=== PATIENT | female | born 1990 | race Caucasian/White ===

== ENCOUNTER → 2018-04-25 | Outpatient (CLI) | payer MEDICAID | END | disposition home or self-care (01) | LOC: RAD 13:01 | DX: O28.4 Abnormal radiological finding on antenatal screening of mother (principal); R76.11 Nonspecific reaction to tuberculin skin test without active tuberculosis | CPT/HCPCS: 71045 ==

== ENCOUNTER 2018-07-02 12:19 | Outpatient (CLI) | payer MEDICAID | END 2018-07-02 13:30 | disposition home or self-care (01) | LOC: OBT 12:19 → L-D 12:19 → OBT 13:30 | DX: O36.8130 Decreased fetal movements, third trimester, not applicable or unspecified (principal); Z3A.37 37 weeks gestation of pregnancy | CPT/HCPCS: 76818 ==

== ENCOUNTER 2018-07-17 14:14 | Inpatient (IN) | payer MEDICAID ==
[2018-07-17 15:58] LABS: ADD MAN DIFF? NO
[2018-07-17 16:00] LABS: BASOPHILS % 0.3 % (0.0-2.0); EOSINOPHILS % 0.6 % (0.0-7.0); HEMATOCRIT 34.2 % (37.0-47.0); HEMOGLOBIN 11.9 g/dl (12.0-16.0); LYMPHOCYTES # 1.5 10^3/ul (0.8-2.9); LYMPHOCYTES % 24.1 % (15.0-51.0); MEAN CORPUSCULAR HEMOGLOBIN 29.9 pg (29.0-33.0); MEAN CORPUSCULAR HGB CONC 34.8 g/dl (32.0-37.0); MEAN CORPUSCULAR VOLUME 85.9 fl (82.0-101.0); MEAN PLATELET VOLUME 12.7 fl (7.4-10.4); MONOCYTE # 0.5 10^3/ul (0.3-0.9); MONOCYTES % 7.1 % (0.0-11.0); NEUTROPHIL # 4.3 10^3/ul (1.6-7.5); NEUTROPHILS % 67.6 % (39.0-77.0); PLATELET COUNT 150 10^3/UL (140-415); RED BLOOD COUNT 3.98 10^6/ul (4.20-5.40); RED CELL DISTRIBUTION WIDTH 13.2 % (11.5-14.5)
[2018-07-17 16:00] LABS: WHITE BLOOD COUNT 6.3 10^3/ul (4.8-10.8)
[2018-07-17] MEDS ORDERED: METHYLERGONOVINE 0.2 MG INJ IM (16:00)
[2018-07-17] MEDS ORDERED: LIDOCAINE 1% (MPF) 30 ML INJ INJ (16:00)
[2018-07-17] MEDS ORDERED: MISOPROSTOL 200 MCG TAB PR (16:00)
[2018-07-17] MEDS ORDERED: AMPICILLIN 2 GM/NS (PMX) 100 ML IV (16:00)
[2018-07-17] MEDS ORDERED: CARBOPROST 250 MCG INJ IM (16:00)
[2018-07-17] MEDS ORDERED: IBUPROFEN 600 MG TAB PO (16:00)
[2018-07-17] MEDS ORDERED: OXYTOCIN 30 UNITS/LR 500 ML IV ×3 (16:00)
[2018-07-17 16:06] LABS: INR 0.88; PARTIAL THROMBOPLASTIN TIME 26.5 Sec (23.0-35.0); PT RATIO 0.9
[2018-07-17] MEDS: LACTATED RINGER'S 1,000 ML IV ×2 (16:22→22:24)
[2018-07-17 16:45] LABS: HEPATITIS B SURFACE ANTIGEN NEGATIVE (NEGATIVE)
[2018-07-17] MEDS: MISOPROSTOL 50 MCG CAPSULE PO (17:54)
[2018-07-17] MEDS ORDERED: AMPICILLIN 1 GM/NS (PMX) 50 ML IV (20:00)
[2018-07-18] MEDS: MISOPROSTOL 50 MCG CAPSULE PO ×5 (02:08→23:33)
[2018-07-18] MEDS: LACTATED RINGER'S 1,000 ML IV ×3 (02:52→18:12)
[2018-07-18 14:58] LABS: RAPID PLASMA REAGIN NONREACTIVE (NR)
[2018-07-19] MEDS: LACTATED RINGER'S 1,000 ML IV ×2 (00:48→08:15)
[2018-07-19] MEDS: MISOPROSTOL 50 MCG CAPSULE PO ×2 (18:15→22:22)
[2018-07-20] MEDS: LACTATED RINGER'S 1,000 ML IV ×4 (02:17→23:44)
[2018-07-20] MEDS: MISOPROSTOL 50 MCG CAPSULE PO ×4 (02:17→14:34)
[2018-07-20] MEDS: BUTORPHANOL 2 MG INJ IV ×2 (08:30→23:37)
[2018-07-21] MEDS: OXYTOCIN 30 UNITS/LR 500 ML IV ×2 (01:34→23:08)
[2018-07-21] MEDS: LACTATED RINGER'S 1,000 ML IV ×2 (07:56→15:16)
[2018-07-21] MEDS ORDERED: ONDANSETRON 4 MG INJ IV ×2 (08:30→20:00)
[2018-07-21] MEDS ORDERED: DIPHENHYDRAMINE 50 MG INJ IV ×2 (08:30→20:00)
[2018-07-21] MEDS ORDERED: EPHEDrine SULFATE 50 MG/5 ML SYG IV (08:30)
[2018-07-21] MEDS ORDERED: NALOXONE (0.4 MG/ML) INJ IV ×2 (08:30→20:00)
[2018-07-21] MEDS: FENTAnyl 2MCG/ML-ROPIV 0.2% 100 ML BAG EPI ×2 (10:52→15:57)
[2018-07-21] MEDS ORDERED: CEFAZOLIN 2 GM/50 ML (PMX) 50 ML IVPB (18:03)
[2018-07-21] MEDS ORDERED: METOCLOPRAMIDE 10 MG INJ (18:38)
[2018-07-21] MEDS ORDERED: OXYTOCIN 10 UNIT INJ ×2 (18:38→19:13)
[2018-07-21] MEDS ORDERED: OXYTOCIN 30 UNITS/LR 500 ML IV ×2 (18:38→23:00)
[2018-07-21] MEDS ORDERED: ONDANSETRON 4 MG INJ (18:38)
[2018-07-21] MEDS ORDERED: morphine SULFATE/PF (10 MG/10 ML) INJ (18:38)
[2018-07-21] MEDS: MINERAL OIL LIGHT 10 ML VIAL TOP (18:43)
[2018-07-21] MEDS: CEFAZOLIN 2 GM/50 ML (PMX) 50 ML IVPB (18:44)
[2018-07-21] MEDS ORDERED: MIDAZOLAM 1 MG/ML 2 ML INJ (19:19)
[2018-07-21] MEDS ORDERED: KETOROLAC 30 MG INJ (19:37)
[2018-07-21] MEDS ORDERED: morphine 2 MG INJ IV (20:00)
[2018-07-21] MEDS ORDERED: AMPICILLIN 1 GM/NS (PMX) 50 ML IV (20:30)
[2018-07-21] MEDS: AZITHROMYCIN 500MG/NS (PMX) 250 ML IVPB (21:23)
[2018-07-21] MEDS: AMPICILLIN 2 GM/NS (PMX) 100 ML IV (21:35)
[2018-07-21] MEDS: morphine SULFATE/PF (10 MG/10 ML) INJ EPI (21:36)
[2018-07-21] MEDS ORDERED: NA PHOSPHATE/BIPHOS 133 ML ENEMA PR (23:00)
[2018-07-21] MEDS ORDERED: CARBOPROST 250 MCG INJ IM (23:00)
[2018-07-21] MEDS ORDERED: METHYLERGONOVINE 0.2 MG INJ IM (23:00)
[2018-07-21] MEDS ORDERED: MISOPROSTOL 200 MCG TAB PR (23:00)
[2018-07-22] MEDS: CEFAZOLIN 2 GM/50 ML (PMX) 50 ML IVPB ×4 (00:26→18:32)
[2018-07-22] MEDS: CLINDAMYCIN 300 MG CAP PO ×5 (00:26→17:26)
[2018-07-22] MEDS: LANOLIN HPA 1 PKT TOP (00:26)
[2018-07-22] MEDS: LACTATED RINGER'S 1,000 ML IV ×2 (02:57→11:23)
[2018-07-22 06:20] LABS: ADD MAN DIFF? NO
[2018-07-22 06:30] LABS: BASOPHILS % 0.3 % (0.0-2.0); EOSINOPHILS % 0.1 % (0.0-7.0); HEMATOCRIT 28.2 % (37.0-47.0); LYMPHOCYTES % 12.8 % (15.0-51.0); MEAN CORPUSCULAR HEMOGLOBIN 30.8 pg (29.0-33.0); MEAN CORPUSCULAR HGB CONC 35.5 g/dl (32.0-37.0); MEAN CORPUSCULAR VOLUME 86.8 fl (82.0-101.0); MEAN PLATELET VOLUME 12.9 fl (7.4-10.4); MONOCYTE # 0.6 10^3/ul (0.3-0.9); MONOCYTES % 7.1 % (0.0-11.0); NEUTROPHIL # 6.2 10^3/ul (1.6-7.5); NEUTROPHILS % 79.4 % (39.0-77.0); PLATELET COUNT 116 10^3/UL (140-415); RED BLOOD COUNT 3.25 10^6/ul (4.20-5.40); RED CELL DISTRIBUTION WIDTH 12.9 % (11.5-14.5)
[2018-07-22 06:30] LABS: WHITE BLOOD COUNT 7.8 10^3/ul (4.8-10.8)
[2018-07-22] MEDS: KETOROLAC 30 MG INJ IV ×2 (06:47→15:19)
[2018-07-22] MEDS: SENNA/DOCUSATE NA (8.6MG/50MG) TAB PO ×2 (08:40→21:57)
[2018-07-22] MEDS: INFLUENZA VIRUS VACCINE 0.5 ML (DISPENSING) IM* (10:00)
[2018-07-22] MEDS: morphine 2 MG INJ IV (12:00)
[2018-07-22] MEDS: BISACODYL 10 MG SUPP PR (15:12)
[2018-07-22] MEDS: IBUPROFEN 800 MG TAB PO (21:57)
[2018-07-23] MEDS: CLINDAMYCIN 300 MG CAP PO ×5 (00:39→23:18)
[2018-07-23] MEDS: OXYCODONE/ACETAMINOPHEN (5/325) TAB PO (00:40)
[2018-07-23] MEDS: CEFAZOLIN 2 GM/50 ML (PMX) 50 ML IVPB (03:00)
[2018-07-23] MEDS: IBUPROFEN 800 MG TAB PO ×3 (06:06→22:33)
[2018-07-23] MEDS: SENNA/DOCUSATE NA (8.6MG/50MG) TAB PO ×2 (09:56→20:39)
[2018-07-23] MEDS: HYDROCODONE/APAP (5/325) TAB PO (09:56)
[2018-07-23] MEDS: ACETAMINOPHEN 325 MG TAB PO ×2 (16:37→20:39)
[2018-07-23] MEDS: LANOLIN HPA 1 PKT TOP (20:39)
[2018-07-24] MEDS: ACETAMINOPHEN 325 MG TAB PO ×2 (02:28→08:52)
[2018-07-24] MEDS: CLINDAMYCIN 300 MG CAP PO (05:33)
[2018-07-24] MEDS: IBUPROFEN 800 MG TAB PO (05:33)
[2018-07-24] MEDS: SENNA/DOCUSATE NA (8.6MG/50MG) TAB PO (08:52)
[2018-07-24] MEDS: DIPHTH/TET/ACEL PERTUSS (ADULT) 0.5 ML VIAL IM* (09:00)
[2018-07-24] MEDS: MEASLES,MUMPS,RUBELLA VACCINE INJ SC* (09:00)
== END 2018-07-24 14:17 | disposition home or self-care (01) | DRG 788 ==
LOC: L-D 14:14 → PP1 07-21 22:32
PROVIDERS: Obstetrics & Gynecology
PROC: 10D00Z1 Extraction of Products of Conception, Low, Open Approach (ICD-10-PCS; principal; 2018-07-21)
DX: O62.0 Primary inadequate contractions (principal); O62.1 Secondary uterine inertia; O99.62 Diseases of the digestive system complicating childbirth; K80.20 Calculus of gallbladder without cholecystitis without obstruction; O99.214 Obesity complicating childbirth; E66.9 Obesity, unspecified; G89.18 Other acute postprocedural pain; Z3A.40 40 weeks gestation of pregnancy; Z37.0 Single live birth
CPT/HCPCS: 62319; 76815; 85025; 85610; 85730; 86592; 86850; 86900; 86901; 87340; 90686; 99464